=== PATIENT | female | born 1990 | race Caucasian/White ===

== ENCOUNTER 2018-06-22 00:05 | Observation (INO) | payer OTHER, SELFPAY ==
[2018-06-22] VITALS (14 sets, daily range): BP systolic 117–145; BP diastolic 66–89; PULSE 16–105; RESP 15–92; TEMP 36.2–37.2; O2SAT 93–100; BMI 38.4
--- NOTE | 2018-06-22 | PATH_ITS ---
[facility] Accession Number: [id number] . 01 Material submitted: . GALLBLADDER AND CONTENTS . 02 Diagnosis: Gallbladder: Cholelithiasis with associated chronic cholecystitis. MRV/06/24/2018 . 02 Electronically signed: . Anjum Fernandez MD, Pathologist NPI- [id number] . 01 Gross description: . Received in formalin, labeled gallbladder and contents, is an intact gallbladder (length-7.7 cm, diameter-2.0 cm) with segovia-pink smooth shiny serosa and a patent cystic duct. No lymph nodes are identified. The lumen contains brown viscous bile and multiple beaulieu-yellow smooth friable calculi (4.0 x 2.5 x 1.3 cm) with bright yellow cut surfaces. The mucosa is beaulieu smooth and flat. The wall is up to 0.1 cm thick. No nodules, masses or lesions are identified. Section code: (A1) cystic duct resection margin and two serial sections from the body; (A2) two longitudinal sections from the fundus. ([id number]) /MRV . 02 Pathologist provided ICD-10: K80.64 . 02 CPT . 525979 Performed at: 01 [facility] [address], [place], [place] [id number] MD Diallo Burkett MD Phone: [phone] Performed at: 02 [facility] [address] [place], [place] [id number] MD Aster Baird MD Phone: [phone]
--- NOTE | 2018-06-22 00:33 | DI.US.S_ITS ---
PROCEDURE: US ABDOMEN COMPLETE INDICATIONS: RIGHT UPPER QUADRANT PAIN TECHNIQUE: Real-time scanning was performed of the abdominal and retroperitoneal organs, with image documentation. COMPARISON: None. FINDINGS: Liver: Liver is diffusely increased in echogenicity. No focal hepatic abnormalities identified. Normal hepatic size. Gallbladder: Several gallstones are present, with several possibly impacted within the gallbladder neck is a stones do not appear to be mobile.. No gallbladder wall thickening. Positive sonographic Jamison sign. Biliary ducts: Intrahepatic bile ducts are non-dilated. Extrahepatic bile duct caliber measures 3.1 mm. Normal is 6-7 mm or less in diameter, or 10 mm or less post-cholecystectomy. Pancreas: Visualized portions of the pancreas are sonographically normal. Spleen: Spleen is normal in size and homogeneous in echotexture. Kidneys: Kidneys are normal in size and echotexture. Right kidney measures 9.6 cm long; left kidney measures 11.5 cm long. No hydronephrosis. 5 mm nonobstructing left inferior pole calcification. No solid masses. Aorta: Visualized aorta is normal in caliber at less than 3 cm. Iliacs: Not well-seen. IVC: Intrahepatic inferior vena cava is patent. Miscellaneous: No free abdominal fluid. IMPRESSION: 1. Increased hepatic echogenicity noted possibly related to hepatic steatosis but other sources of hepatocellular disease cannot be excluded. Recommend clinical correlation. 2. Cholelithiasis with several stones which appear to be impacted within the gallbladder neck and there is a positive sonographic Jamison sign. Developing acute cholecystitis cannot be excluded. Recommend clinical correlation. 3. 5 millimeter nonobstructing left renal calcification. Note: These findings are concordant with the preliminary interpretation. Dictated by: Zander Nicole [facility] Interpreted: Delmer Burgess MD on 06/22/2018 at 8:03 Approved by: Delmer Burgess M.D. on 06/22/2018 at 12:58
--- NOTE | 2018-06-22 00:35 | ED.CHESTPAIN ---
HPI - Chest Pain General Chief Complaint: Chest Pain Stated Complaint: pain under ribs goes around to back/chest Time Seen by Provider: 06/22/18 00:25 Source: patient Mode of arrival: ambulatory Limitations: no limitations History of Present Illness HPI narrative: The patient presents with upper abdominal pain radiating to the back. The pain is kind of circumferential around the upper arm. She has no associated chest pain or dyspnea. She has no cough. She denies nausea or emesis associated with the pain. The pain started about 7:00 p.m.. She last ate about lunch time. She denies a history of PUD or GERD. She does not use tobacco or alcohol. She has no chronic GI issues. Her LMP was 2 weeks ago and normal. She denies any probability of . She has no dysuria. She has not felt ill. The pain has increased. Related Data Allergies Allergy/AdvReac Type Severity Reaction Status Date / Time No Known Drug Allergies Allergy Verified 06/22/18 00:39 Review of Systems Review of Systems All systems reviewed & are unremarkable except as noted in HPI and below Constitutional Denies chills, Denies fever(s), Denies lethargy and Denies weakness Cardiovascular Denies chest pain, Denies irregular heart rhythm, Denies lightheadedness, Denies palpitations, Denies dyspnea, Denies dyspnea on exertion and Denies orthopnea Respiratory Denies cough, Denies dyspnea, Denies dyspnea on exertion and Denies wheezing Gastrointestinal Gastrointestinal: Reports abdominal pain, Denies constipation, Denies diarrhea, Denies loose stools, Denies nausea and Denies vomiting Genitourinary Denies dysuria and Reports other (Normal menstrual cycle 2 weeks ago. She is not ) Musculoskeletal Reports as per HPI, Denies abnormal gait, Reports back pain and Denies muscle weakness Integumentary/Breasts Denies erythema and Denies rash Neurologic Reports as per HPI, Denies abnormal gait and Denies weakness Endocrine Denies palpitations Allergic/Immunologic Denies wheezing [facility] Medical History No active medical problems (Acute) Surgical History History of appendectomy (Acute) Social History Smoking Status: Never smoker alcohol intake: never substance use type: does not use Exam Initial Vital Signs Initial Vital Signs: Vital Signs Temperature 97.8 F 06/22/18 00:15 Pulse Rate 80 06/22/18 00:15 Respiratory Rate 15 06/22/18 00:15 Blood Pressure 145/89 H 06/22/18 00:15 Pulse Oximetry 100 06/22/18 00:15 Const General: cooperative, healthy appearing and well developed Nutritional Appearance: well nourished Orientation: alert, awake, oriented x3 and not confused [facility] Mouth: oral mucosae normal Eyes Conjunctivae: conjunctivae normal and other Sclera: sclerae normal Chest Chest: other (No tenderness to the lower sternum or anterior chest wall) Resp Effort & Inspection: normal respiratory effort, able to speak in complete sentences, no respiratory distress and no use of accessory muscles Auscultation: clear to auscultation bilaterally, no rales, no rhonchi and no wheezes Cardio Rate: regular rate Rhythm: regular rhythm Heart Sounds: S1 normal, S2 normal, no click, no gallops, no murmurs and no rubs Pulses: normal peripheral pulses GI Inspection: non-distended Palpation: no hepatosplenomegaly, No pulsatile mass and tender (In the RUQ with guarding but no rebound.) Auscultation: normal bowel sounds Back/Spine/Pelvis Back: No CVA tenderness Skin General: no rashes or lesions noted and No jaundice Neuro General: alert, oriented x3, gait normal and no focal motor deficits Speech: speech normal Extrem General: full ROM, no clubbing, cyanosis or edema, no pedal edema and no calf tenderness Course Orders Ordered: ED Orders 06/22/18 00:33 US abdomen complete Stat 06/22/18 00:35 Complete Blood Count AUTO DIFF Stat Comprehensive Metabolic Panel Stat Lipase Stat Hydromorphone HCl (Dilaudid) 1 mg IV Q4HR PRN PRN Reason: Pain, Moderate (4-6) Sodium Chloride (Normal Saline 0.9%) 1,000 mls @ 150 mls/hr IV CONT ELSIE Last Admin: 06/22/18 00:43 Dose: 150 mls/hr Sodium Chloride (Normal Saline 0.9%) 1,000 mls @ 125 mls/hr IV CONT ELSIE Ondansetron HCl (Zofran) 4 mg IV Q4HR PRN PRN Reason: Nausea And Vomiting Discontinued Medications Hydromorphone HCl (Dilaudid) 1 mg IV NOW ONE Stop: 06/22/18 01:48 Last Admin: 06/22/18 01:48 Dose: 1 mg Ketorolac Tromethamine (Toradol) 30 mg IV NOW ONE Stop: 06/22/18 00:33 Last Admin: 06/22/18 01:24 Dose: 30 mg Pantoprazole Sodium (Protonix) 40 mg IV NOW ONE Stop: 06/22/18 00:33 Last Admin: 06/22/18 00:43 Dose: 40 mg Vital Signs - 8 hr 06/22/18 00:15 06/22/18 01:15 Temperature 97.8 F Pulse Rate 80 66 Respiratory Rate 15 15 Blood Pressure 145/89 H Blood Pressure [Left Arm] 132/75 Pulse Oximetry 100 100 MDM - Chest Pain Lab Data Attestation: I reviewed the patient's lab results. Result diagrams: 06/22/18 00:35 06/22/18 00:35 Lab Results 06/22/18 06/22/18 Range/Units 00:35 00:35 WBC 12.4 H (4.5-11.0) X10^3/uL RBC 4.92 (4.0-5.2) X10^6/uL Hgb 13.9 (12.0-16.0) g/dL Hct 42.0 (36-46) % MCV 85.5 (80-100) fL MCH 28.2 (26-34) PG MCHC 33.0 (30-36) % RDW 12.9 (11.6-14.8) % Plt Count 322 (150-400) X10^3/uL Neut % (Auto) 74.6 (50-75) % Lymph % (Auto) 15.5 L (25-40) % [place] % (Auto) 8.4 (3-14) % Eos % (Auto) 1.1 L (2-4) % Baso % (Auto) 0.4 (0-2) % Neut # (Auto) 9200 H (0036-8267) /uL Sodium 139 (137-145) mmol/L Potassium 4.4 (3.4-5.1) mmol/L Chloride 102 (98-107) mmol/L Carbon Dioxide 25 (22-32) mmol/L BUN 13 (7-17) mg/dL Creatinine 0.60 (0.52-1.04) mg/dL Estimated GFR > 60.0 (>60) mL/min BUN/Creatinine Ratio 21.7 (6-22) Glucose 117 H (70-100) mg/dL Calcium 9.9 (8.4-10.2) mg/dL Total Bilirubin 0.7 (0.2-1.3) mg/dL AST 31 (14-36) IU/L ALT 35 (9-52) IU/L Alkaline Phosphatase 65 (38-126) U/L Total Protein 7.6 (6.3-8.2) g/dL Albumin 4.7 (3.5-5.0) g/dL Globulin 2.9 (1.7-4.1) g/dL Albumin/Globulin Ratio 1.6 (1.0-2.8) Lipase 138 (23-300) U/L Imaging Data us abdomen: Radiologist's impression: Two obstructing stones in the neck of the gallbladder. Normal common bile duct. No wall thickening or pericholecystic fluid. MDM Narrative Medical decision making narrative: The patient has acute cholecystitis. I discussed the presentation, exam, labs and ultrasound with the on-call surgeon, Dr. Dunn. She has agreed to admit the patient. The patient will be NPO overnight with antiemetics and pain meds as needed. Discharge Plan Departure Patient Disposition: Admitted As Inpatient Clinical Impression: Acute cholecystitis
[2018-06-22] MEDS: PANTOPRAZOLE 40 MG VIAL IV (00:43)
[2018-06-22] MEDS: SODIUM CHLORIDE 0.9% 1,000 ML 150 ML IV (00:43)
[2018-06-22 00:45] LABS: Add Manual Diff / Slide Review NO; Basophils Percent Auto 0.4 % (0-2); Eosinophils Percent Auto 1.1 % (2-4); Hemoglobin 13.9 g/dL (12.0-16.0); Lymphocytes Percent Auto 15.5 % (25-40); Mean Corpuscular Hemoglobin 28.2 PG (26-34); Mean Corpuscular Volume 85.5 fL (80-100); Monocytes Percent Auto 8.4 % (3-14); Neutrophils Absolute Auto 9200 /uL (1500-7000); Neutrophils Percent Auto 74.6 % (50-75); Platelet Count 322 X10^3/uL (150-400); Red Blood Cell Count 4.92 X10^6/uL (4.0-5.2); Red Cell Distribution Width 12.9 % (11.6-14.8); White Blood Cell Count 12.4 X10^3/uL (4.5-11.0)
[2018-06-22 00:59] LABS: Alanine Aminotransferase 35 IU/L (9-52); Albumin 4.7 g/dL (3.5-5.0); Albumin Globulin Ratio 1.6 (1.0-2.8); Alkaline Phosphatase 65 U/L (38-126); Aspartate Aminotransferase 31 IU/L (14-36); BUN Creatinine Ratio 21.7 (6-22); Bilirubin Total 0.7 mg/dL (0.2-1.3); Blood Urea Nitrogen 13 mg/dL (7-17); Calcium 9.9 mg/dL (8.4-10.2); Carbon Dioxide 25 mmol/L (22-32); Chloride 102 mmol/L (98-107); Estimated Glomerular Filt Rate > 60.0 mL/min (>60); Globulin 2.9 g/dL (1.7-4.1); Glucose 117 mg/dL (70-100); HEMOLYSIS 49 (0-50); Lipase 138 U/L (23-300); Potassium 4.4 mmol/L (3.4-5.1); Sodium 139 mmol/L (137-145); Total Protein 7.6 g/dL (6.3-8.2)
[2018-06-22] MEDS: KETOROLAC 60 MG/2 ML VIAL 30 MG IV (01:24)
[2018-06-22] MEDS: HYDROMORPHONE 1 MG INJ IV (01:48)
--- NOTE | 2018-06-22 02:19 | PC.NURSE ---
Pt reports good pain relief after dilaudid, now rates pain 1/10.
[2018-06-22] MEDS: SODIUM CHLORIDE 0.9% 1,000 ML 125 ML IV ×2 (02:56→09:36)
--- NOTE | 2018-06-22 08:44 | CM.DANOTE ---
DCP: Case received, EMR reviewed and met with patient. Introduced self and role. DCP template complete with information currently available. Patient is a 28 year old female who admitted early this am via family vehicle, to the care of the hospitalist team. PCP: [facility].Payer:confirmed: [facility] Patient came to hospital with symptoms of severe abdominal and back pain. Patient carries diagnosis of cholecystitis. Met briefly with patient in room this morning, family member in room as well. Pleasant, alert and oriented. Patient will be meeting with Dr. Dunn today for possible surgical procedure of stones. Patient lives in [place] with , and has support of family as well. P: DCP to follow. Patient should be able to return home when medically stable. Laura Newell RN/Shot Bagger
[2018-06-22] MEDS: HYDROMORPHONE 2 MG INJ 1 MG IV (09:39)
[2018-06-22] MEDS: PIPERACILLIN-TAZO 3.375 GM/50 ML FROZ.PIGGY IV ×2 (10:06→18:26)
--- NOTE | 2018-06-22 10:28 | PC.NURSE ---
Addendum entered by Peace Jain R.N. 06/22/18 14:45: SURG - pacu arrived, ring, watch and nose piercing removed and given to her SO. Original Note: AM NOTE - alert, in earlier and surg this afternoon, bt are hypo, abd r mid quadrant is tender, states discomfort 4 on scale 0/10, standby assist to br, voided, missed hat, ret to bed, given 1mg iv dilaudid, ra 99%, npo status reinforced.
[2018-06-22] MEDS: LACTATED RINGERS 1,000 ML 42 ML IV ×2 (14:27→16:38)
--- NOTE | 2018-06-22 15:15 | PM.HP.1 ---
History of Present Illness Date Patient Seen: 06/22/18 Time Patient Seen: 15:15 Chief complaint: pain under ribs goes around to back/chest Narrative: 28-year-old otherwise healthy female who presented to the emergency department early this morning with complaints of severe progressive unrelenting right upper quadrant abdominal pain. Pain was described as quite sharp with acute onset approximately 6:00 p.m. last evening following a meal. Pain radiated directly to the back but did not involve the shoulder. No chest pain or shortness of breath. No fever or chills. No nausea or vomiting. Last bowel movement was yesterday and reportedly normal. No dysuria or hematuria. Denies any jaundice, brown urine, or acholic stools. She has had no similar episodes in the past. Patient History Medical History No active medical problems (Acute) Seasonal allergies (Acute) Surgical History H/O ovarian cystectomy (Acute) History of appendectomy (Acute) Family & Social History Family History: Reviewed 06/22/18 by Dane Martínez MD Social History: household members spouse Prior Living Arrangements House Safety & Behavioral: Feels Safe in Current Yes Environment Been Physically Hurt or No Threatened By a Person Suicidal Ideation Description None Suicide Plan Description No Plan Tobacco & Substance use: Smoking Status Never smoker alcohol intake never alcohol intake frequency 0-2 drinks per day Substance Use Type does not use Meds Home Medications Medication Instructions Recorded Confirmed Type fexofenadine-pseudoephedrine 1 tab PO QAM 06/22/18 06/22/18 History [Oksana-D 24 Hour] 21-iron fu-folic acid 1 cap PO DIRECTED 06/22/18 06/22/18 History [ Complete] Allergies Allergy/AdvReac Type Severity Reaction Status Date / Time No Known Drug Allergies Allergy Verified 06/22/18 00:39 Review of Systems Review of Systems All systems reviewed & are unremarkable except as noted in HPI and below Exam Vital Signs (past 8 hours): - 06/22/18 14:34 Temperature 97.4 F L Pulse Rate 85 Respiratory Rate 15 Blood Pressure 118/74 Pulse Oximetry 99 Oxygen Delivery Method Room Air Narrative Exam Narrative: Well-nourished well-developed female in no acute distress. Moderately obese. Alert oriented x3 Afebrile since admission. No tachycardia Sclera nonicteric Neck is supple without lymphadenopathy Regular rate and rhythm. No wheezes or crackles Abdomen is soft and nondistended. She is focally tender in the right upper quadrant with a positive Jamison sign. She is completely nontender elsewhere. I appreciate no masses, ascites, or hepatomegaly. Extremities show no clubbing or cyanosis. No edema. Objective Labs Result Diagrams: 06/22/18 00:35 06/22/18 00:35 Labs: Laboratory Results - last 24 hr 06/22/18 12 00:35 00:35 WBC 12.4 H RBC 4.92 Hgb 13.9 Hct 42.0 MCV 85.5 MCH 28.2 MCHC 33.0 RDW 12.9 Plt Count 322 Neut % (Auto) 74.6 Lymph % (Auto) 15.5 L [place]mullen % (Auto) 8.4 Eos % (Auto) 1.1 L Baso % (Auto) 0.4 Neut # (Auto) 9200 H Sodium 139 Potassium 4.4 Chloride 102 Carbon Dioxide 25 BUN 13 Creatinine 0.60 Estimated GFR > 60.0 BUN/Creatinine Ratio 21.7 Glucose 117 H Calcium 9.9 Total Bilirubin 0.7 AST 31 ALT 35 Alkaline Phosphatase 65 Total Protein 7.6 Albumin 4.7 Globulin 2.9 Albumin/Globulin Ratio 1.6 Lipase 138 I have personally reviewed her abdominal ultrasound done in the emergency department. She has no gallbladder wall thickening or pericholecystic fluid. Common bile duct is normal. She has several gallstones impacted within the neck of the gallbladder. Urine test in emergency department was negative. Assessment & Plan Plan: Assessment/Plan Narrative: 28-year-old female with biliary colic secondary to cholelithiasis. She also has evidence of acute cholecystitis with elevated white blood cell count. No evidence of choledocholithiasis however. I recommended laparoscopic cholecystectomy today. Technical details of the procedure were discussed. Anticipated healing and recovery times were reviewed. Risks, benefits, alternatives were explained. Risks including but not limited to anesthesia, bleeding, infection, pain, scars, need for drains, need to convert to open procedure, liver injury, small bowel injury, colon injury, gastric injury, vascular injury, bile duct injury, bile duct leak, retained common duct stone, need for endoscopic procedures, need for further major abdominal surgery including hepatic surgery, and all significant risks of major abdominal surgery were explained at length. All questions were answered to her satisfaction, and she voiced understanding. Consent was placed on the chart. Proceed as above. Quality VTE Deep Vein Thrombosis/Pulmonary Embolism Present on Admission: No
--- NOTE | 2018-06-22 15:21 | PM.PREOP ---
Pre-operative Note Interval Note Pre-op Check: Yes History & Physical Reviewed by Physician, Yes Exam Performed and Yes History & Physical exam performed today by Physician Changes: No H&P completed within 30 days and has changed as indicated here:: Patient seen and examined today. History and physical examination is on the chart and obviously has not changed within the last hour or so. Proceed with laparoscopic cholecystectomy today as planned.
[2018-06-22] MEDS: CEFAZOLIN 2 GM/100 ML FROZ.PIGGY IV (15:30)
--- NOTE | 2018-06-22 15:49 | SUR.OPER ---
Supine on padded OR bed, head on pillow, arms secured on padded arm boards at <90 degrees abduction, legs uncrossed, safety belt at thigh, tape over blanket over lower legs.
[2018-06-22] MEDS: LIDOCAINE 1% W/EPI INJ 4 ML INJ (16:09)
[2018-06-22] MEDS: BUPIVACAINE 0.5% (PF) VIAL 30 ML INJ (16:10)
[2018-06-22] MEDS: fentaNYL 100 MCG/2 ML INJ 50 MCG IV ×2 (17:20→17:25)
--- NOTE | 2018-06-22 17:20 | PM.OP.1 ---
Operative Date/Time/Diagnoses Date of procedure: 06/22/18 Time of procedure: 17:20 Pre-op diagnosis: Acute cholecystitis secondary to cholelithiasis Post-op diagnosis: other (Acute cholecystitis with hydrops of the gallbladder secondary to cholelithiasis) Procedure & Clinicians Procedure: Laparoscopic cholecystectomy Same procedure as scheduled: Yes Indications: 28-year-old obese female who presented with severe right upper quadrant abdominal pain. Examination and evaluation were consistent with acute cholecystitis secondary to gallstones. Urgent laparoscopic cholecystectomy was recommended. Surgeon: Dane Martínez Click Yes if Unassisted: Yes Anesthesia Type: General Operative Notes Findings: 1. Acutely inflamed gallbladder with edema of the gallbladder wall 2. Impacted gallstones in the neck of the gallbladder and multiple other gallstones within the lumen 3. Hydrops of the gallbladder 4. Adhesions in the lower abdomen and right lower quadrant consistent with previous operations 5. Otherwise grossly normal liver, peritoneum, omentum, stomach, duodenum, and colon within the limits of laparoscopic visualization Closure Type: primary Specimen(s): other (Gallbladder) Implants & Drains: None Estimated Blood Loss (mL): 25 Blood products transfused: none Procedure in detail: After obtaining informed consent the patient was brought to the operating room placed supine on the table. After satisfactory induction of anesthesia the abdomen was prepped and draped in usual sterile fashion. SCOAP time out was performed per standard protocol. A 1: 1 mixture 1% lidocaine with 1: 100,000 epinephrine and 0.5% plain Marcaine was injected in the skin and subcutaneous tissue at the superior aspect of the umbilicus for postoperative analgesia. Vertical midline incision was created at the superior superior aspect of the umbilicus with 11 scalpel blade for distance of approximately 3 cm. Blunt dissection revealed the rectus fascia which was quite deep given the patient's obesity and body habitus. Fascia was divided under direct visualization with Metzenbaum scissors and Sushant clamps were used to secure the edges of the fascia bilaterally. Fascia was secured superiorly and inferiorly with interrupted 0 Vicryl suture. We were slightly off the midline in the muscle was bluntly divided with S retractors whereby the underlying peritoneum was visualized and entered under direct visualization with Gladys clamp. Long 12 mm trocar was then inserted and carbon dioxide pneumoperitoneum was created. Abdomen was visually explored with a 30 degree 5 mm laparoscope. Findings are as above. Patient was placed in reverse Trendelenburg position and appropriate position was chosen for placement of a 5 mm epigastric trocar. Local anesthesia was injected, skin was incised with 11 scalpel blade, and trocar was inserted under direct laparoscopic visualization to the right of the falciform ligament. In a similar fashion to individual 5 mm trocars were placed in right lateral abdomen. Fundus of the gallbladder was secured with ratcheted grasper and retracted superiorly and medially over the liver edge. There were adhesions to the infundibulum of the gallbladder which were taken down bluntly with a [place] dissector. Infundibulum of the gallbladder was then exposed and secured with a Rebekah grasper then retracted inferiorly and laterally. Meticulous dissection was performed in the triangle of Calot using a combination of the [place] dissector and Kittner dissector. Cystic duct and cystic artery were exposed and cleared of overlying adhesions. Junction of the cystic duct and infundibulum of the gallbladder was clearly visualized. Critical view of the liver bed through the avascular window between the cystic duct, infundibulum, and cystic artery was obtained. Cystic duct was then controlled with 3 clips proximally 1 distally then divided with the scissors. In a similar fashion the cystic artery was controlled and divided with scissors. Monopolar cautery was used to remove the gallbladder from the hepatic bed. Specimen was placed in an endo-pouch then retrieved through the umbilical incision. Specimen was sent for permanent section. Patient was returned to supine position and the right upper quadrant was irrigated with copious amounts of sterile saline solution. Liver bed was meticulously examined and noted to be hemostatic. Previously placed clips were also meticulously examined on several occasions and noted to be in good position without evidence of hemorrhage or bile leak. After copious irrigation irrigant was noted to be completely clear and there was no evidence of any other problems with hemorrhage or bile leakage. Instruments and trocars removed and hemostasis verified. Carbon dioxide was evacuated. Fascia at the umbilical site was closed with previously placed 0 Vicryl suture. Skin at all 4 incision was then closed in a subcuticular fashion with running 4 0 Monocryl suture. Dermal adhesive was applied. Anesthesia was reversed and patient extubated in the operating room. She was taken recovery in stable condition. Complications: none Condition: stable Disposition: PACU Plan for aftercare: 1. Return to acute care unit for ongoing convalescence. Likely discharge home tomorrow.
--- NOTE | 2018-06-22 17:37 | SUR.PHASEI ---
1725 pt ready to transfer but receiving RN not available
[2018-06-22] MEDS: LACTATED RINGERS 1,000 ML 84 ML IV (18:05)
[2018-06-22] MEDS: OXYCODONE IR 5 MG TABLET PO (18:34)
[2018-06-23 00:36] VITALS: BP 127/63; PULSE 102; RESP 16; TEMP 36.9; O2SAT 95
[2018-06-23 00:40] VITALS: O2SAT 93
[2018-06-23] MEDS: ACETAMINOPHEN 325 MG TABLET 650 MG PO (06:01)
[2018-06-23 06:04] VITALS: BP 129/58; PULSE 95; RESP 16; TEMP 36.9; O2SAT 96
[2018-06-23 07:00] VITALS: O2SAT 96
[2018-06-23 07:50] VITALS: BP 114/61; PULSE 93; RESP 16; TEMP 36.8; O2SAT 97
[2018-06-23] MEDS: OXYCODONE IR 5 MG TABLET PO (08:25)
[2018-06-23] MEDS: LORATADINE 10 MG TABLET PO (08:26)
[2018-06-23] MEDS: DOCUSATE 100 MG CAPSULE PO (08:26)
[2018-06-23] MEDS: PRENATAL VIT,CALC/IRON/FOLIC 1 TABLET 1 TAB PO (08:26)
--- NOTE | 2018-06-23 08:28 | PC.NURSE ---
Addendum entered by Judith Pavon R.N. 06/23/18 12:46: Discharge teaching provided with Pt and S.O. Reviewed pain medication and post op follow up needed. All questions answered. Iv removed. W/c to private vehicle. Original Note: AM shift note Pt is A/o x3, APAP ineffective for COLON/ 5/10 ABD pain. Percolone given. BT hypoactive. Denies flatus and nausea. Pt feels ABD is slightly distended and tender to touch. Dermabond sites are CDI. GAIL. Enc ambulation this shift, education provided Re: avoiding post op complications. SO at bedside.
--- NOTE | 2018-06-23 10:28 | PM.DS.1 ---
History of Present Illness Date Patient Seen: 06/23/18 Time Patient Seen: 10:16 Chief complaint: pain under ribs goes around to back/chest Narrative: Patient is a woman admitted for treatment of acute cholecystitis. Discharge Providers Date of admission: 06/22/18 02:13 Discharge provider: Stevo Jalloh MD Discharge Date: 06/23/18 Summary Discharge Diagnosis: Obesity with a BMI of 38. Acute cholecystitis with cholelithiasis. Hospital Course: The patient underwent a laparoscopic cholecystectomy. She was given broad-spectrum antibiotics. Her diet was advanced postop and she was discharged follow-up in the office. She was instructed verbally to avoid lifting straining and may drive when pain-free off medication. She also was told to use a laxative if necessary. Status at Discharge Functional status at discharge: independent ambulation Time Spent with Patient Less than 30 minutes Exam Vital Signs (past 8 hours): - 06/23/18 06:04 06/23/18 07:50 Temperature 98.5 F 98.2 F Pulse Rate 95 H 93 H Respiratory Rate 16 16 Blood Pressure 129/58 L 114/61 Pulse Oximetry 96 97 Oxygen Delivery Method Room Air Oxygen Flow Rate 0 Objective Labs Result Diagrams: 06/22/18 00:35 06/22/18 00:35 Discharge Plan Discharge Plan Patient Disposition: Home Discharge Med Rec/Prescriptions Prescriptions: New hydrocodone-acetaminophen [[place]] 5-325 mg tablet See Label Instructions .ROUTE .COMPLEX Qty: 14 RF: 0 Continue fexofenadine-pseudoephedrine [Oksana-D 24 Hour] 180-240 mg Tablet Extended Release 24 Hr 1 tab PO QAM RF: 0 21-iron fu-folic acid [ Complete] 14 mg iron- 400 mcg Tablet 1 cap PO DIRECTED RF: 0 Follow up/Referrals: Dane Martínez MD [Physician] - 06/30/18 4:15 pm Provider Discharge Instructions Diet: Diet as Tolerated Skin/Wound/Dressing Care Report to your healthcare provider any signs of infection, such as:: chills, fever, night sweats, increased pain, unusual drainage and unusual redness Visit Report/Discharge Packet Visit Report Forms: Stroke Signs & Symptoms Discharge Data Attending Provider: Olivia Dunn Admit Date/Time: 06/22/18 02:13 Quality VTE Deep Vein Thrombosis/Pulmonary Embolism Present on Admission: No
[2018-06-23 11:10] VITALS: BP 106/53; PULSE 70; RESP 18; TEMP 36.7; O2SAT 98
== END 2018-06-23 13:20 | disposition home or self-care (01) ==
LOC: ED 02:04 → AC 06:30
PROVIDERS: Surgery; Admitting Provider Surgery; Emergency Provider Emergency Medicine; Visit Provider Surgery
PROC: 0FT44ZZ Resection of Gallbladder, Percutaneous Endoscopic Approach (ICD-10-PCS; CPT 47562; principal; 2018-06-22 16:30)
DX: K80.00 Calculus of gallbladder with acute cholecystitis without obstruction (principal); R07.9 Chest pain, unspecified; E66.01 Morbid (severe) obesity due to excess calories; K82.8 Other specified diseases of gallbladder; K82.1 Hydrops of gallbladder
CPT/HCPCS: 47562; 36591; 76700; 80053; 81003; 81025; 83690; 85025; 88304; 93005; 96361; 96374; 96375; 99220; 99283; 99284; G0378; C9113; J0690; J1100; J1170; J1885; J2405; J2543; J2704; J3010

== ENCOUNTER 2019-02-19 10:39 | Emergency (ER) | payer OTHER, SELFPAY ==
[2018-06-30 16:04] VITALS: BMI 38.4
--- NOTE | 2019-02-19 10:45 | ED_ITS ---
HPI - Abdominal Pain General Chief Complaint: Urogenital-Female Stated Complaint: SIDE PAIN R SIDE Time Seen by Provider: 02/19/19 10:40 Source: patient Mode of arrival: ambulatory Limitations: no limitations History of Present Illness HPI narrative: 28-year-old female here for evaluation of right-sided flank pain. Patient states that it started this morning. Was a fairly sudden onset. She states that it felt similar to when she had gallbladder stones in the past. She has since had her gallbladder removed. She has also had her appendix removed. States this morning she felt like she had episodes where she had to urinate but had difficulty doing so. Denies any blood in her urine. No vaginal bleeding. Related Data Home Medications Medication Instructions Recorded Confirmed fexofenadine-pseudoephedrine 1 tab PO QAM 06/22/18 07/28/18 [Oksana-D 24 Hour] 21-iron fu-folic acid 1 cap PO DIRECTED 06/22/18 07/28/18 [ Complete] Previous Rx's Medication Instructions Recorded tramadol [Ultram] 50 mg PO Q6H PRN #10 tab 02/19/19 Allergies Allergy/AdvReac Type Severity Reaction Status Date / Time No Known Drug Allergies Allergy Verified 06/22/18 00:39 Review of Systems Constitutional Denies fever(s) and Denies headache(s) ENT Ears, Nose, Mouth, and Throat: Denies headache(s) Cardiovascular Denies chest pain and Denies dyspnea Respiratory Denies dyspnea Gastrointestinal Gastrointestinal: Reports abdominal pain, Denies change in stool character, Denies dyspepsia, Reports nausea and Denies vomiting Genitourinary Denies dysuria and Reports urinary hesitancy Musculoskeletal Denies myalgias and Denies arthralgias Integumentary/Breasts Denies rash Neurologic Denies headache(s) Hematologic/Lymphatic Denies easy bleeding and Denies easy bruising [facility] Medical History (Updated 02/19/19 @ 12:00 by Tam Foote DO) No active medical problems (Acute) Seasonal allergies (Acute) Surgical History H/O ovarian cystectomy (Acute) History of appendectomy (Acute) History of cholecystectomy (Acute) Family History (Updated 06/30/18 @ 15:46 by Wendi Muñoz LPN) Mother Hypertension Grandmother Hypertension Diabetes mellitus Grandfather Stroke Social History (Updated 06/30/18 @ 15:46 by Wendi Mñuoz LPN) marital status: household members: spouse occupational status: employed Smoking Status: Never smoker alcohol intake: never substance use type: does not use Social History marital status: household members: spouse occupational status: employed Smoking Status: Never smoker alcohol intake: never substance use type: does not use Exam Initial Vital Signs Initial Vital Signs: Vital Signs Temperature 97.6 F 02/19/19 10:48 Pulse Rate 86 02/19/19 10:48 Respiratory Rate 18 02/19/19 10:48 Blood Pressure 141/77 H 02/19/19 10:48 Pulse Oximetry 96 02/19/19 10:48 Const General: cooperative, well developed and well groomed Orientation: alert, awake and oriented x3 Resp Effort & Inspection: normal respiratory effort Auscultation: clear to auscultation bilaterally Cardio Rate: regular rate Rhythm: regular rhythm Pulses: radial pulses present GI Inspection: non-distended Palpation: soft, No firm and No tender Back/Spine/Pelvis Back: No CVA tenderness Skin Lesions: no lesions Rashes: no rashes Neuro General: alert and awake Cognition: normal cognition Extrem General: normal to inspection and capillary refill normal Psych Appearance: grossly normal and well kempt Course Orders Ordered: ED Orders 02/19/19 11:02 Urine Microscopic Stat 02/19/19 11:03 CT kidney ureter bladder (KUB) Stat Vital Signs - 8 hr 02/19/19 10:48 Temperature 97.6 F Pulse Rate 86 Respiratory Rate 18 Blood Pressure 141/77 H Pulse Oximetry 96 MDM - Abdominal Pain Lab Data Attestation: I reviewed the patient's lab results. Lab Results 02/19/19 Range/Units 11:02 Urine RBC 30-100/hpf H (0-5/HPF) Urine WBC 1-5/hpf (0-5/HPF) Ur Squamous Epith Cells 1-5 /hpf (0-5/HPF) Ur Transition Epith Cell 0-1/hpf (0-5/HPF) Urine Bacteria None seen (None) Granular Casts 1-5/lpf (None) Urine Mucus 1+ H (Negative) Ur Culture Indicated? Cult not indicated Point of care testing: Point of Care Testing Test Results Negative Urine Dip Bedside Urine Glucose Negative Bedside Urine Bilirubin ++ 2 Bedside Urine Ketone +++ 80 Urine Specific [place] 1.030 Bedside Urine Occult Blood +++ Bedside Urine pH 5.5 Bedside Urine Protein + 30 Bedside Urine Urobilinogen +/- 1mg Bedside Urine Nitrite - Negative Bedside Urine Leukocytes - Negative Esterase Imaging Data CT scan - abdomen: Radiologist's impression: [address] [address] [address] Scan Report Signed Patient: Ni Nunes LMR#: [id number] : 1990Acct:[id number] Age/Sex: 28 / FDate of Service: 02/19/19 Loc: ED Accession Number: [id number] Procedure: CT kidney ureter bladder (KUB) Ordering Provider: Tam Foote D.O. PROCEDURE: CT KIDNEY URETER BLADDER (KUB) INDICATIONS: Right-sided pain concern for renal stone TECHNIQUE: Noncontrast 5 mm thick sections acquired from the diaphragms to the symphysis. 5 mm thick coronal and sagittal reformats were then performed. For radiation dose reduction, the following was used: automated exposure control, adjustment of mA and/or kV according to patient size. COMPARISON: [facility], , US ABDOMEN COMPLETE, 06/22/2018, 1:07. FINDINGS: Image quality: Excellent. Lung bases: Lung bases are clear. Heart size is normal. Urinary system: Both kidneys are normal in size. No kidney stones. No hydronephrosis or perinephric fat stranding. Both ureters appear non-dilated throughout their expected courses. Bladder wall thickness is normal. There is an apparent small calcified bladder stone, which is within the dependent bladder measuring 3 mm series 2 image 78. Other solid organs: Liver is normal in size. Gallbladder has been removed. Pancreas is normal in contours. Spleen is normal in size. No adrenal nodules. Peritoneum and bowel: Unenhanced bowel loops demonstrate normal wall thickness and caliber. No free fluid or air. Appendectomy changes are seen. Nodes and vessels: No retroperitoneal or mesenteric adenopathy by size criteria. Aorta and inferior vena cava are normal in caliber. Abdominal wall: No ventral hernias. Pelvis: No free pelvic fluid. No inguinal hernias or adenopathy. Physiologic cystic changes can be seen of the ovaries. Bones: No suspicious bony lesions. No vertebral body compression fractures. IMPRESSION: No renal stones or hydronephrosis can be seen. There is an apparent 3 mm bladder stone seen. Incidental note is made of: Cholecystectomy Appendectomy Dictated by: Steve Cuenca M.D. on 02/19/2019 at 10:33 Approved by: Steve Cuenca M.D. on 02/19/2019 at 10:36 [facility] Narrative Medical decision making narrative: Patient has been relatively symptom-free since being here in the emergency department. The CT scan does show a 3 mm stone in the bladder. She has blood in her urine but no signs of infection. I do suspect that the symptoms she had earlier today was when she was passing the stone. We discussed return precautions and follow-up instructions. No further intervention needed here in the emergency department. The patient expressed understanding and agreement with plan. Discharge Plan Departure Patient Disposition: Home Clinical Impression: Renal colic on right side Instructions: DI for Kidney Stones Activity Restrictions/Additional Instructions: You do have a 3 mm stone in your bladder. I would expect that you will pass this within the next 1-2 days and most likely later today. Take the medication the as needed. Return to the emergency department for any new or worsening symptoms. Prescriptions: New tramadol [Ultram] 50 mg tablet 50 mg PO Q6H PRN (Reason: pain) Qty: 10 RF: 0 No Action fexofenadine-pseudoephedrine [Oksana-D 24 Hour] 180-240 mg Tablet Extended Release 24 Hr 1 tab PO QAM RF: 0 21-iron fu-folic acid [ Complete] 14 mg iron- 400 mcg Tablet 1 cap PO DIRECTED RF: 0
[2019-02-19 10:48] VITALS: BP 141/77; PULSE 86; RESP 18; TEMP 36.4; O2SAT 96; BMI 40.8
--- NOTE | 2019-02-19 11:03 | DI.CT.S_ITS ---
PROCEDURE: CT KIDNEY URETER BLADDER (KUB) INDICATIONS: Right-sided pain concern for renal stone TECHNIQUE: Noncontrast 5 mm thick sections acquired from the diaphragms to the symphysis. 5 mm thick coronal and sagittal reformats were then performed. For radiation dose reduction, the following was used: automated exposure control, adjustment of mA and/or kV according to patient size. COMPARISON: [facility], US, US ABDOMEN COMPLETE, 06/22/2018, 1:07. FINDINGS: Image quality: Excellent. Lung bases: Lung bases are clear. Heart size is normal. Urinary system: Both kidneys are normal in size. No kidney stones. No hydronephrosis or perinephric fat stranding. Both ureters appear non-dilated throughout their expected courses. Bladder wall thickness is normal. There is an apparent small calcified bladder stone, which is within the dependent bladder measuring 3 mm series 2 image 78. Other solid organs: Liver is normal in size. Gallbladder has been removed. Pancreas is normal in contours. Spleen is normal in size. No adrenal nodules. Peritoneum and bowel: Unenhanced bowel loops demonstrate normal wall thickness and caliber. No free fluid or air. Appendectomy changes are seen. Nodes and vessels: No retroperitoneal or mesenteric adenopathy by size criteria. Aorta and inferior vena cava are normal in caliber. Abdominal wall: No ventral hernias. Pelvis: No free pelvic fluid. No inguinal hernias or adenopathy. Physiologic cystic changes can be seen of the ovaries. Bones: No suspicious bony lesions. No vertebral body compression fractures. IMPRESSION: No renal stones or hydronephrosis can be seen. There is an apparent 3 mm bladder stone seen. Incidental note is made of: Cholecystectomy Appendectomy Dictated by: Steve Cuenca M.D. on 02/19/2019 at 10:33 Approved by: Steve Cuenca M.D. on 02/19/2019 at 10:36
[2019-02-19 11:11] LABS: Bacteria Urine None Seen
[2019-02-19 11:25] LABS: Culture Indicated Urine Cult Not Indicated; Granular Casts Urine 1-5/LPF; Mucus Urine 1+ (Negative); RBC Urine 30-100/HPF (0-5/HPF); Squamous Epithelial Cell Urine 1-5 /HPF (0-5/HPF); Transitional Epi Cells Urine 0-1/HPF (0-5/HPF); WBC Urine 1-5/HPF (0-5/HPF)
[2019-02-19 12:12] VITALS: BP 127/71; PULSE 68; RESP 15; O2SAT 100
== END 2019-02-19 12:21 | disposition home or self-care (01) ==
PROVIDERS: Emergency Provider Emergency Medicine
DX: N23 Unspecified renal colic (principal)
CPT/HCPCS: 74176; 81003; 81015; 81025; 99282; 99283; 99284

== ENCOUNTER 2019-12-23 17:19 | Emergency (ER) | payer OTHER, SELFPAY ==
[2018-06-30 16:04] VITALS: BMI 38.4
[2019-12-23 17:23] VITALS: BP 147/76; PULSE 110; RESP 14; TEMP 36.6; O2SAT 100; BMI 32.9
--- NOTE | 2019-12-23 20:11 | ED.ABDPAIN ---
HPI - Abdominal Pain General Chief Complaint: Abdominal Pain Stated Complaint: blockage she cant pankaj forbes specify Time Seen by Provider: 12/23/19 20:05 Source: patient Mode of arrival: Ambulatory Limitations: no limitations History of Present Illness HPI narrative: 29-year-old female nonsmoker with history of chronic gastrointestinal problems presents with her and a chief complaint of decreased bowel movements, bloating and abdominal discomfort for the past few days. She has been taking MiraLax without success. She denies any fever or chills. She denies any nausea, vomiting or diarrhea. She denies any blood in her stool. She denies any dysuria, frequency or urgency. MD complaint: abdominal pain Onset (ago): day(s) Pain Consistency: intermittent Location: diffuse Severity: moderate Quality: cramping Radiation: none Migration to: no migration Relieving factors: nothing Exacerbating factors: nothing Associated symptoms: nausea Related Data Home Medications Medication Instructions Recorded Confirmed fexofenadine-pseudoephedrine 1 tab PO QAM 06/22/18 07/28/18 [Oksana-D 24 Hour] 21-iron fu-folic acid 1 cap PO DIRECTED 06/22/18 07/28/18 [ Complete] Previous Rx's Medication Instructions Recorded tramadol [Ultram] 50 mg PO Q6H PRN #10 tab 02/19/19 Allergies Allergy/AdvReac Type Severity Reaction Status Date / Time No Known Drug Allergies Allergy Verified 12/23/19 17:23 Review of Systems Constitutional Constitutional: Denies chills, Denies fatigue, Denies fever(s), Denies frequent falls, Denies lethargy and Denies weakness Eyes Eyes: Denies change in vision, Denies eye discharge, Denies irritation and Denies loss of vision ENT Ears, Nose, Mouth, and Throat: Denies change in voice, Denies dizziness, Denies neck pain, Denies sore throat and Denies throat swelling Cardiovascular Cardiovascular: Denies chest pain, Denies irregular heart rhythm, Denies lightheadedness, Denies palpitations, Denies dyspnea, Denies dyspnea on exertion and Denies orthopnea Respiratory Respiratory: Denies cough, Denies dyspnea, Denies dyspnea on exertion and Denies wheezing Gastrointestinal Gastrointestinal: Reports abdominal pain, Denies change in bowel habits, Reports constipation, Reports cramping, Denies diarrhea, Denies nausea and Denies vomiting Musculoskeletal Musculoskeletal: Denies neck pain and Denies numbness Integumentary/Breasts Skin/Breast: Denies pruritus, Denies erythema, Denies rash and Denies wounds Neurologic Neurologic: Denies behavioral changes, Denies confusion, Denies dizziness, Denies frequent falls, Denies loss of vision, Denies numbness and Denies weakness Psychiatric Psychiatric: Denies anxiety, Denies behavioral changes, Denies confusion, Denies depression, Denies homicidal ideation and Denies suicidal ideation Endocrine Endocrine: Denies fatigue, Denies flushing and Denies palpitations Hematologic/Lymphatic Hematologic/Lymphatic: Denies easy bruising Allergic/Immunologic Allergic/Immunologic: Denies urticaria, Denies throat swelling and Denies wheezing Patient History Medical History No active medical problems (Acute) Seasonal allergies (Acute) Surgical History H/O ovarian cystectomy (Acute) History of appendectomy (Acute) History of cholecystectomy (Acute) Family History Mother Hypertension Grandmother Hypertension Diabetes mellitus Grandfather Stroke Social History marital status: household members: spouse occupational status: employed Smoking Status: Never smoker alcohol intake: never substance use type: does not use Smoking Status: Never smoker alcohol intake frequency: 0-2 drinks per day Substance Use Type: does not use Exam Narrative Exam Narrative: GENERAL: [29] year old patient appears stated age. Well-nourished, well-developed patient, in mild distress. HEAD: Atraumatic. Normocephalic. EYES: Pupils equal round and reactive. Extraocular motions intact. No scleral icterus. No injection or drainage. ENT: Nose without bleeding, purulent drainage. Throat without erythema, tonsillar hypertrophy or exudate. Airway patent. NECK: Trachea midline. Non tender CARDIOVASCULAR: Regular rate and rhythm without murmurs, gallops, or rubs. RESPIRATORY: Clear to auscultation. Breath sounds equal bilaterally. No wheezes, rales, or rhonchi. GASTROINTESTINAL: Abdomen soft, non-tender, nondistended. Bowel sounds in all 4 quadrants RECTAL: heme negative, no mass or stool. Performed with female nursing house shorer at the bedside and patient's permission EXTREMITIES: No edema or joint tenderness. BACK: Nontender without deformity or crepitance. No flank tenderness. NEURO: AOx3. SKIN: No rash or erythema of visible areas Initial Vital Signs Initial Vital Signs: Vital Signs Temperature 97.8 F 12/23/19 17:23 Pulse Rate 110 H 12/23/19 17:23 Respiratory Rate 14 12/23/19 17:23 Blood Pressure 147/76 H 12/23/19 17:23 Pulse Oximetry 100 12/23/19 17:23 Course Vital Signs Vital signs: Vital Signs - 8 hr 12/23/19 17:23 Temperature 97.8 F Pulse Rate 110 H Respiratory Rate 14 Blood Pressure 147/76 H Pulse Oximetry 100 MDM - Abdominal Pain Imaging Data Abdominal x-ray: Radiologist's Impression: [address] [address] XRay Report Signed Patient: Ni Nunes LMR#: [id number] : 1990Acct:[id number] Age/Sex: 29 / FDate of Service: 12/23/19 Loc: ED Accession Number: [id number] Procedure: XR acute abdomen series Ordering Provider: Addy Carlisle D.O. PROCEDURE: XR ACUTE ABDOMEN SERIES INDICATIONS: decreased BM, Abdominal pain TECHNIQUE: One view chest and two views of the abdomen were acquired. COMPARISON: [facility], CT, CT KIDNEY URETER BLADDER (KUB), 02/19/2019, 11:08. FINDINGS: Surgical changes and devices: Cholecystectomy clips are present.. Chest: Lungs are clear. Heart size is normal. No pleural effusions. No pneumoperitoneum. Abdomen: Bowel gas pattern is nonspecific. There is paucity of small bowel gas. Moderate stool is seen in right colon. There is no visible distal colonic gas. No suspicious calcifications. Visualized solid organ contours appear normal. Bones: No suspicious bony lesions. IMPRESSION: Nonspecific bowel gas pattern. Dictated by: Olga Salinas M.D. on 12/23/2019 at 21:49 Approved by: Olga Salinas M.D. on 12/23/2019 at 21:50 MDM Narrative Medical decision making narrative: patient had a large BM and feels much better. Return precautions given. Questions answered to her apparent satisfaction. Discharge Plan Departure Patient Disposition: Home Clinical Impression: Abdominal pain Qualifiers: Abdominal location: generalized Qualified Code(s): R10.84 - Generalized abdominal pain Constipation Qualifiers: Constipation type: unspecified constipation type Qualified Code(s): K59.00 - Constipation, unspecified Discharge Date/Time: 12/23/19 22:27 Instructions: DI for Abdominal Pain-Adult, DI for Constipation Activity Restrictions/Additional Instructions: *You have been diagnosed with [Generalized abdominal pain and constipation ] *What to do: *Take medications as directed *Follow up with your primary care provider in 2-3 days, call for an appointment. Let them know you were seen in the Emergency Department and that we ask that you be seen in follow up *Return to ER if you should have any new, worsening or concerning symptoms Prescriptions: No Action fexofenadine-pseudoephedrine [Oksana-D 24 Hour] 180-240 mg Tablet Extended Release 24 Hr 1 tab PO QAM RF: 0 21-iron fu-folic acid [ Complete] 14 mg iron- 400 mcg Tablet 1 cap PO DIRECTED RF: 0 tramadol [Ultram] 50 mg tablet 50 mg PO Q6H PRN (Reason: pain) Qty: 10 RF: 0
[2019-12-23 20:13] VITALS: BP 136/77
--- NOTE | 2019-12-23 20:56 | DI.RAD.S_ITS ---
PROCEDURE: XR ACUTE ABDOMEN SERIES INDICATIONS: decreased BM, Abdominal pain TECHNIQUE: One view chest and two views of the abdomen were acquired. COMPARISON: [facility], CT, CT KIDNEY URETER BLADDER (KUB), 02/19/2019, 11:08. FINDINGS: Surgical changes and devices: Cholecystectomy clips are present.. Chest: Lungs are clear. Heart size is normal. No pleural effusions. No pneumoperitoneum. Abdomen: Bowel gas pattern is nonspecific. There is paucity of small bowel gas. Moderate stool is seen in right colon. There is no visible distal colonic gas. No suspicious calcifications. Visualized solid organ contours appear normal. Bones: No suspicious bony lesions. IMPRESSION: Nonspecific bowel gas pattern. Dictated by: Olga Salinas M.D. on 12/23/2019 at 21:49 Approved by: Olga Salinas M.D. on 12/23/2019 at 21:50
[2019-12-23 22:02] VITALS: BP 128/59; PULSE 84; RESP 14; O2SAT 97
== END 2019-12-23 22:27 | disposition home or self-care (01) ==
PROVIDERS: Emergency Provider Emergency Medicine
DX: R10.84 Generalized abdominal pain (principal); K59.00 Constipation, unspecified
CPT/HCPCS: 74022; 99283

== ENCOUNTER 2020-02-29 14:05 | Emergency (ER) | payer OTHER, SELFPAY ==
[2018-06-30 16:04] VITALS: BMI 38.4
[2020-02-29 14:10] VITALS: BP 137/84; PULSE 84; RESP 14; TEMP 36.9; O2SAT 100; BMI 32.9
[2020-02-29 14:44] LABS: Add Manual Diff / Slide Review NO; Basophils Absolute Auto 100 /uL (0-100); Basophils Percent Auto 0.4 % (0-2); Eosinophils Absolute Auto 1600 /uL (0-450); Eosinophils Percent Auto 9.4 % (2-4); Hematocrit 44.5 % (36-46); Hemoglobin 15.1 g/dL (12.0-16.0); Lymphocytes Absolute Auto 2200 /uL (1100-4500); Lymphocytes Percent Auto 13.1 % (25-40); Mean Corpuscular HGB Conc 33.9 % (30-36); Mean Corpuscular Hemoglobin 29.6 PG (26-34); Mean Corpuscular Volume 87.5 fL (80-100); Monocytes Absolute Auto 1300 /uL (0-900); Monocytes Percent Auto 7.9 % (3-14); Neutrophils Absolute Auto 11600 /uL (1500-7000); Neutrophils Percent Auto 69.2 % (50-75); Platelet Count 304 X10^3/uL (150-400); Red Blood Cell Count 5.09 X10^6/uL (4.0-5.2); Red Cell Distribution Width 12.4 % (11.6-14.8); White Blood Cell Count 16.8 X10^3/uL (4.5-11.0)
[2020-02-29 14:53] LABS: PTT Partial Thromboplastin Tim 30 SECONDS (26.4-36.2)
[2020-02-29 14:57] LABS: Alanine Aminotransferase 21 IU/L (<35); Albumin 4.6 g/dL (3.5-5.0); Albumin Globulin Ratio 1.4 (1.0-2.8); Alkaline Phosphatase 80 U/L (38-126); Aspartate Aminotransferase 31 IU/L (14-36); BUN Creatinine Ratio 27.9 (6-22); Blood Urea Nitrogen 17 mg/dL (7-17); Calcium 9.6 mg/dL (8.4-10.2); Carbon Dioxide 24 mmol/L (22-32); Chloride 103 mmol/L (98-107); Estimated Glomerular Filt Rate > 60.0 mL/min (>60); Globulin 3.4 g/dL (1.7-4.1); Glucose 92 mg/dL (70-100); HEMOLYSIS < 15 (0-50); Lipase 112 U/L (23-300); Potassium 3.9 mmol/L (3.4-5.1); Sodium 136 mmol/L (137-145)
[2020-02-29] MEDS: PANTOPRAZOLE 40 MG VIAL IV (15:18)
[2020-02-29] MEDS: SODIUM CHLORIDE 0.9% 1,000 ML 1000 ML IV (15:18)
--- NOTE | 2020-02-29 15:22 | ED_ITS ---
HPI - Abdominal Pain <PIERRE Mcfadden - Last Filed: 02/29/20 18:40> General Chief Complaint: Abdominal Pain Stated Complaint: sharp stomach pains Time Seen by Provider: 02/29/20 14:20 Source: patient Mode of arrival: Ambulatory Limitations: no limitations History of Present Illness HPI narrative: The patient is a 29-year-old female nonsmoker who presents with her with history of cholecystectomy, appendectomy who presents with a chief complaint of abdominal pain. She states it started this morning when she woke up, she has not had anything to eat yet today. She states it feels like stabbing periumbilical pain. She states that she has felt this way before, though it usually goes away soon. It did not go away today. She denies any fevers, nausea vomiting. Her last bowel movement just prior to arrival and normal. She states that the pain was so severe she was bent over. She takes blood this once a day. Last menstrual period was February 06. She denies any dysuria urgency or frequency. She denies any abnormal vaginal discharge. She states her pain is epigastric at this point time, was radiating around the sides prior, is no longer radiating. Patient states her diet has been usual, she drinks have black coffee every morning without eating anything. Related Data Home Medications Medication Instructions Recorded Confirmed fexofenadine-pseudoephedrine 1 tab PO QAM 06/22/18 07/28/18 [Oksana-D 24 Hour] 21-iron fu-folic acid 1 cap PO DIRECTED 06/22/18 07/28/18 [ Complete] Previous Rx's Medication Instructions Recorded tramadol [Ultram] 50 mg PO Q6H PRN #10 tab 02/19/19 ondansetron 4 mg PO Q6H PRN #20 tab 02/29/20 pantoprazole 40 mg PO DAILY #14 tab 02/29/20 Allergies Allergy/AdvReac Type Severity Reaction Status Date / Time No Known Drug Allergies Allergy Verified 02/29/20 14:13 Review of Systems <PIERRE Mcfadden - Last Filed: 02/29/20 18:40> Review of Systems Narrative: GENERAL: Denies chills, fatigue, malaise, fever, sweats. HEENT: Denies sinus pain, ear pain, sore throat, difficulty swallowing, dizziness. RESPIRATORY: Denies dyspnea, cough, wheezing, hemoptysis, sputum. CARDIOVASCULAR: Denies chest pain, palpitations, orthopnea, edema, GASTROINTESTINAL: See HPI : Denies dysuria, frequency, incontinence, hematuria, urinary retention. MUSCULOSKELETAL: denies weakness, joint pain, or bony pain SKIN: Denies rash, skin lesions, or other NEUROLOGIC: Denies weakness, headache, numbness, change in speech, confusion, seizures, incoordination. PSYCHIATRIC: No concerning psychosocial issues. 12 point review of systems is negative except for those stated above Patient History <PIERRE Mcfadden - Last Filed: 02/29/20 18:40> Medical History No active medical problems (Acute) Seasonal allergies (Acute) Surgical History H/O ovarian cystectomy (Acute) History of appendectomy (Acute) History of cholecystectomy (Acute) Family History Mother Hypertension Grandmother Hypertension Diabetes mellitus Grandfather Stroke Social History marital status: household members: spouse occupational status: employed Smoking Status: Never smoker alcohol intake: never substance use type: does not use Smoking Status: Never smoker alcohol intake frequency: holidays/special occasions only Substance Use Type: does not use Exam <PIERRE Mcfadden - Last Filed: 02/29/20 18:40> Narrative Exam Narrative: GENERAL: This is a well-nourished, well-developed patient, no acute distress HEAD: Atraumatic. Normocephalic. No temporal or scalp tenderness. EYES: Pupils equal round and reactive. Extraocular motions intact. No scleral icterus. No injection or drainage. ENT: Nose without bleeding, purulent drainage or septal hematoma. Mask is on Airway patent. NECK: Trachea midline. No JVD or lymphadenopathy. Supple, nontender, no meningeal signs. CARDIOVASCULAR: Regular rate and rhythm without murmurs, gallops, or rubs. RESPIRATORY: Clear to auscultation. Breath sounds equal bilaterally. No wheezes, rales, or rhonchi. No cough. No increased respiratory effort. No accessory muscle use. GASTROINTESTINAL: Abdomen soft, epigastric tenderness to palpation, nondistended. No hepato-splenomegaly, or palpable masses. No guarding. Active bowel sounds all 4 quadrants. EXTREMITIES: No clubbing, cyanosis, or edema. No joint tenderness, effusion, or edema noted. BACK: Nontender without deformity or crepitance. No flank tenderness. NEURO: AOx3. SKIN: No rash or erythema. Initial Vital Signs Initial Vital Signs: Vital Signs Temperature 98.4 F 02/29/20 14:10 Pulse Rate 84 02/29/20 14:10 Respiratory Rate 14 02/29/20 14:10 Blood Pressure 137/84 02/29/20 14:10 Pulse Oximetry 100 02/29/20 14:10 <Payton Veloz DO - Last Filed: 03/01/20 10:25> Initial Vital Signs Initial Vital Signs: Vital Signs Temperature 98.4 F 02/29/20 14:10 Pulse Rate 84 02/29/20 14:10 Respiratory Rate 14 02/29/20 14:10 Blood Pressure 137/84 02/29/20 14:10 Pulse Oximetry 100 02/29/20 14:10 Course <PIERRE Mcfadden - Last Filed: 02/29/20 18:40> Orders Ordered: Discontinued Medications Al Hydrox/Mg Hydrox/Simethicone 20 ml/ Lidocaine HCl 15 ml 0 ml PO NOW ONE Stop: 02/29/20 16:45 Last Admin: 02/29/20 16:58 Dose: 35 ml Documented by: ANDREW Sodium Chloride (Normal Saline 0.9%) 1,000 mls @ 1,000 mls/hr IV BOLUS ONE Stop: 02/29/20 16:07 Last Infusion: 02/29/20 16:50 Dose: 0 mls/hr Documented by: Admin: 02/29/20 15:18 Dose: 1,000 mls/hr Documented by: ANDREW Ondansetron HCl (Zofran) 4 mg IV NOW ONE Stop: 02/29/20 16:45 Last Admin: 02/29/20 16:58 Dose: 4 mg Documented by: ANDREW Pantoprazole Sodium (Protonix) 40 mg IV NOW ONE Stop: 02/29/20 15:09 Last Admin: 02/29/20 15:18 Dose: 40 mg Documented by: ANDREW Vital Signs Vital signs: Vital Signs - 8 hr 02/29/20 14:10 02/29/20 16:14 02/29/20 16:15 Temperature 98.4 F Pulse Rate 84 86 82 Respiratory Rate 14 23 17 Blood Pressure 137/84 127/68 Pulse Oximetry 100 100 99 02/29/20 16:30 02/29/20 17:00 02/29/20 17:30 Temperature Pulse Rate 75 84 80 Respiratory Rate 22 15 20 Blood Pressure 120/63 115/66 115/77 Pulse Oximetry 99 98 98 <Payton Veloz DO - Last Filed: 03/01/20 10:25> Orders Ordered: Discontinued Medications Al Hydrox/Mg Hydrox/Simethicone 20 ml/ Lidocaine HCl 15 ml 0 ml PO NOW ONE Stop: 02/29/20 16:45 Last Admin: 02/29/20 16:58 Dose: 35 ml Documented by: ANDREW Sodium Chloride (Normal Saline 0.9%) 1,000 mls @ 1,000 mls/hr IV BOLUS ONE Stop: 02/29/20 16:07 Last Infusion: 02/29/20 16:50 Dose: 0 mls/hr Documented by: Admin: 02/29/20 15:18 Dose: 1,000 mls/hr Documented by: ANDREW Ondansetron HCl (Zofran) 4 mg IV NOW ONE Stop: 02/29/20 16:45 Last Admin: 02/29/20 16:58 Dose: 4 mg Documented by: ANDREW Pantoprazole Sodium (Protonix) 40 mg IV NOW ONE Stop: 02/29/20 15:09 Last Admin: 02/29/20 15:18 Dose: 40 mg Documented by: ANDREW Vital Signs Vital signs: Vital Signs - 8 hr 02/29/20 14:10 02/29/20 16:14 02/29/20 16:15 Temperature 98.4 F Pulse Rate 84 86 82 Respiratory Rate 14 23 17 Blood Pressure 137/84 127/68 Pulse Oximetry 100 100 99 02/29/20 16:30 02/29/20 17:00 08/26/20 17:30 Temperature Pulse Rate 75 84 80 Respiratory Rate 22 15 20 Blood Pressure 120/63 115/66 115/77 Pulse Oximetry 99 98 98 MDM - Abdominal Pain <Caryn Hurstmer, [facility]- - Last Filed: 02/29/20 18:40> Lab Data Result diagrams: 02/29/20 14:33 02/29/20 14:33 Labs: Lab Results 02/29/20 02/29/20 02/29/20 Range/Units 14:33 14:33 14:33 WBC 16.8 H (4.5-11.0) X10^3/uL RBC 5.09 (4.0-5.2) X10^6/uL Hgb 15.1 (12.0-16.0) g/dL Hct 44.5 (36-46) % MCV 87.5 (80-100) fL MCH 29.6 (26-34) PG MCHC 33.9 (30-36) % RDW 12.4 (11.6-14.8) % Plt Count 304 (150-400) X10^3/uL Neut % (Auto) 69.2 (50-75) % Lymph % (Auto) 13.1 L (25-40) % [place] % (Auto) 7.9 (3-14) % Eos % (Auto) 9.4 H (2-4) % Baso % (Auto) 0.4 (0-2) % Neut # (Auto) 34559 H (4263-9105) /uL Lymph # (Auto) 2200 (7142-3876) /uL [place] # (Auto) 1300 H (0-900) /uL Eos # (Auto) 1600 H (0-450) /uL Baso # (Auto) 100 (0-100) /uL PT 12.0 (10.1-12.7) SECONDS INR 1.0 (0.9-1.3) APTT 30 (26.4-36.2) SECONDS Sodium 136 L (137-145) mmol/L Potassium 3.9 (3.4-5.1) mmol/L Chloride 103 (98-107) mmol/L Carbon Dioxide 24 (22-32) mmol/L BUN 17 (7-17) mg/dL Creatinine 0.61 (0.52-1.04) mg/dL Estimated GFR > 60.0 (>60) mL/min BUN/Creatinine Ratio 27.9 H (6-22) Glucose 92 (70-100) mg/dL Calcium 9.6 (8.4-10.2) mg/dL Total Bilirubin 1.0 (0.2-1.3) mg/dL AST 31 (14-36) IU/L ALT 21 (<35) IU/L Alkaline Phosphatase 80 (38-126) U/L Total Protein 8.0 (6.3-8.2) g/dL Albumin 4.6 (3.5-5.0) g/dL Globulin 3.4 (1.7-4.1) g/dL Albumin/Globulin Ratio 1.4 (1.0-2.8) Lipase 112 (23-300) U/L Point of care testing: Point of Care Testing Test Results Negative Urine Dip Bedside Urine Glucose Negative Bedside Urine Bilirubin - Negative Bedside Urine Ketone +/- 5 Urine Specific [place] 1.030 Bedside Urine Occult Blood - Negative Bedside Urine pH 5.5 Bedside Urine Protein - Negative Bedside Urine Urobilinogen - Negative Bedside Urine Nitrite - Negative Bedside Urine Leukocytes - Negative Esterase Imaging Data CT scan - abdomen/pelvis: Radiologist's Impression: [address] [place] [id number] Scan Report Signed Patient: Ni Nunes R#: [id number] : 1990Acct:[id number] Age/Sex: 29 / FDate of Service: 02/29/20 Loc: ED Accession Number: [id number] Procedure: CT abdomen pelvis w con Ordering Provider: Caryn Higgins [facility]- PROCEDURE: CT ABDOMEN PELVIS W CON INDICATIONS: abd pain, elevated wbc TECHNIQUE: After the administration of intravenous contrast, 5 mm thick sections acquired from the diaphragm to the symphysis. 5 mm coronal and sagittal reformats were acquired. For radiation dose reduction, the following was used: automated exposure control, adjustment of mA and/or kV according to patient size. COMPARISON: None. FINDINGS: Image quality: Excellent. ABDOMEN: Lung bases: Lung bases are clear. Heart size is normal. Solid organs: Liver is normal in size and enhancement. Gallbladder has been previously resected . Biliary system is non dilated. Pancreas enhances normally. Spleen is normal in size and enhancement. No adrenal nodules. Kidneys demonstrate normal size and enhancement, without hydronephrosis. Peritoneum and bowel: Bowel loops demonstrate normal wall thickness and caliber. No free fluid or air. Generalized colonic obstipation slightly greater on right than the left. Nodes and vessels: No retroperitoneal or mesenteric adenopathy by size criteria. Aorta and inferior vena cava are normal in size. Miscellaneous: No ventral hernias. PELVIS: Genitourinary: Bladder wall thickness is normal. Miscellaneous: No inguinal hernias or adenopathy. Enteric staple line at the cecum right lower quadrant suggest prior appendectomy. No evidence of diverticulitis. Bones: No suspicious bony lesions. No vertebral body compression fractures. IMPRESSION: Prior cholecystectomy. At the lung bases and through the abdomen and pelvis no underlying infection or neoplasm is found. Surgical enteric staple line at the right lower quadrant suggests prior appendectomy. No diverticulitis identified. Dictated by: Maurice Tristan M.D. on 02/29/2020 at 16:19 Approved by: Maurice Tristan M.D. on 02/29/2020 at 16:21 [facility] Narrative Medical decision making narrative: The patient is a 29 year female who presents with a chief complaint of epigastric pain. She does have pain to palpation. Her labs are mostly reassuring ovum slight leukocytosis up to 16. Given her significant pain and leukocytosis, CT was obtained to help rule out any acute etiologies. Abdominal pelvic CT has no acute findings. The patient feels much improved after the above-stated therapies, and I discussed at length decreased acid in her diet, not drinking back coffee empty stomach etcetera prescriptions of Zofran and Protonix given. Encouraged follow-up with primary care provider in the next few days. Discussed coming back to ER for any acute concerns, abdominal pain with fever etcetera. Patient and have no questions or concerns upon discharge and state understanding of return precautions as well as follow-up care <Payton Veloz, DO - Last Filed: 03/01/20 10:25> Lab Data Labs: Lab Results 02/29/20 02/29/20 02/29/20 Range/Units 14:33 14:33 14:33 WBC 16.8 H (4.5-11.0) X10^3/uL RBC 5.09 (4.0-5.2) X10^6/uL Hgb 15.1 (12.0-16.0) g/dL Hct 44.5 (36-46) % MCV 87.5 (80-100) fL MCH 29.6 (26-34) PG MCHC 33.9 (30-36) % RDW 12.4 (11.6-14.8) % Plt Count 304 (150-400) X10^3/uL Neut % (Auto) 69.2 (50-75) % Lymph % (Auto) 13.1 L (25-40) % [place] % (Auto) 7.9 (3-14) % Eos % (Auto) 9.4 H (2-4) % Baso % (Auto) 0.4 (0-2) % Neut # (Auto) 58432 H (2003-5954) /uL Lymph # (Auto) 2200 (5374-8957) /uL [place] # (Auto) 1300 H (0-900) /uL Eos # (Auto) 1600 H (0-450) /uL Baso # (Auto) 100 (0-100) /uL PT 12.0 (10.1-12.7) SECONDS INR 1.0 (0.9-1.3) APTT 30 (26.4-36.2) SECONDS Sodium 136 L (137-145) mmol/L Potassium 3.9 (3.4-5.1) mmol/L Chloride 103 (98-107) mmol/L Carbon Dioxide 24 (22-32) mmol/L BUN 17 (7-17) mg/dL Creatinine 0.61 (0.52-1.04) mg/dL Estimated GFR > 60.0 (>60) mL/min BUN/Creatinine Ratio 27.9 H (6-22) Glucose 92 (70-100) mg/dL Calcium 9.6 (8.4-10.2) mg/dL Total Bilirubin 1.0 (0.2-1.3) mg/dL AST 31 (14-36) IU/L ALT 21 (<35) IU/L Alkaline Phosphatase 80 (38-126) U/L Total Protein 8.0 (6.3-8.2) g/dL Albumin 4.6 (3.5-5.0) g/dL Globulin 3.4 (1.7-4.1) g/dL Albumin/Globulin Ratio 1.4 (1.0-2.8) Lipase 112 (23-300) U/L Point of care testing: Point of Care Testing Test Results Negative Urine Dip Bedside Urine Glucose Negative Bedside Urine Bilirubin - Negative Bedside Urine Ketone +/- 5 Urine Specific [place] 1.030 Bedside Urine Occult Blood - Negative Bedside Urine pH 5.5 Bedside Urine Protein - Negative Bedside Urine Urobilinogen - Negative Bedside Urine Nitrite - Negative Bedside Urine Leukocytes - Negative Esterase Discharge Plan Departure Patient Disposition: Home Clinical Impression: Abdominal pain Qualifiers: Abdominal location: epigastric Qualified Code(s): R10.13 - Epigastric pain Discharge Date/Time: 02/29/20 18:04 Instructions: DI for Abdominal Pain-Adult, GERD Diet Activity Restrictions/Additional Instructions: Thank you for trusting us with your care today. As discussed, I sent 2 prescriptions to the [facility] pharmacy I suggest a light diet, avoid deep fried fatty food spicy foods etc Please follow-up with primary care provider next 48-72 hours Please come back to the emergency department for any acute concerns Prescriptions: New ondansetron 4 mg tablet,disintegrating 4 mg PO Q6H PRN (Reason: nausea and vomiting) Qty: 20 RF: 0 pantoprazole 40 mg tablet,delayed release (DR/EC) 40 mg PO DAILY Qty: 14 RF: 0 No Action fexofenadine-pseudoephedrine [Oksana-D 24 Hour] 180-240 mg Tablet Extended Release 24 Hr 1 tab PO QAM RF: 0 21-iron fu-folic acid [ Complete] 14 mg iron- 400 mcg Tablet 1 cap PO DIRECTED RF: 0 tramadol [Ultram] 50 mg tablet 50 mg PO Q6H PRN (Reason: pain) Qty: 10 RF: 0 Referrals: [facility] [Provider Group] <Payton Veloz, - Last Filed: 03/01/20 10:25> Cosign ED Attending Estela Attestation: I was immediately available in the department for consultation. Documentation has been reviewed. I agree with assessment and plan.
--- NOTE | 2020-02-29 15:51 | DI.CT.S_ITS ---
PROCEDURE: CT ABDOMEN PELVIS W CON INDICATIONS: abd pain, elevated wbc TECHNIQUE: After the administration of intravenous contrast, 5 mm thick sections acquired from the diaphragm to the symphysis. 5 mm coronal and sagittal reformats were acquired. For radiation dose reduction, the following was used: automated exposure control, adjustment of mA and/or kV according to patient size. COMPARISON: None. FINDINGS: Image quality: Excellent. ABDOMEN: Lung bases: Lung bases are clear. Heart size is normal. Solid organs: Liver is normal in size and enhancement. Gallbladder has been previously resected . Biliary system is non dilated. Pancreas enhances normally. Spleen is normal in size and enhancement. No adrenal nodules. Kidneys demonstrate normal size and enhancement, without hydronephrosis. Peritoneum and bowel: Bowel loops demonstrate normal wall thickness and caliber. No free fluid or air. Generalized colonic obstipation slightly greater on right than the left. Nodes and vessels: No retroperitoneal or mesenteric adenopathy by size criteria. Aorta and inferior vena cava are normal in size. Miscellaneous: No ventral hernias. PELVIS: Genitourinary: Bladder wall thickness is normal. Miscellaneous: No inguinal hernias or adenopathy. Enteric staple line at the cecum right lower quadrant suggest prior appendectomy. No evidence of diverticulitis. Bones: No suspicious bony lesions. No vertebral body compression fractures. IMPRESSION: Prior cholecystectomy. At the lung bases and through the abdomen and pelvis no underlying infection or neoplasm is found. Surgical enteric staple line at the right lower quadrant suggests prior appendectomy. No diverticulitis identified. Dictated by: Maurice Tristan M.D. on 02/29/2020 at 16:19 Approved by: Maurice Tristan M.D. on 02/29/2020 at 16:21
[2020-02-29 16:14] VITALS: PULSE 86; RESP 23; O2SAT 100
[2020-02-29 16:15] VITALS: BP 127/68; PULSE 82; RESP 17; O2SAT 99
[2020-02-29 16:30] VITALS: BP 120/63; PULSE 75; RESP 22; O2SAT 99
[2020-02-29] MEDS: ONDANSETRON 4 MG/2 ML INJ IV (16:58)
[2020-02-29] MEDS: MAG HYDROX/ALUMINUM/SIMETH SUS 20 ML, LIDOCAINE VISCOUS 2% 15 ML PO (16:58)
[2020-02-29 17:00] VITALS: BP 115/66; PULSE 84; RESP 15; O2SAT 98
[2020-02-29 17:30] VITALS: BP 115/77; PULSE 80; RESP 20; O2SAT 98
== END 2020-02-29 18:04 | disposition home or self-care (01) ==
PROVIDERS: Emergency Medicine; Emergency Provider Nurse Practitioner Family
DX: R10.13 Epigastric pain (principal); D72.829 Elevated white blood cell count, unspecified
CPT/HCPCS: 36415; 74177; 80053; 81003; 81025; 83690; 85025; 85610; 85730; 93005; 96361; 96374; 96375; 99284; C9113; J2405; Q9967

== ENCOUNTER → 2020-11-22 13:28 | Outpatient (CLI) | payer OTHER, SELFPAY ==
[2018-06-30 16:04] VITALS: BMI 38.4
[2020-11-22 14:02] LABS: COVID19 -Nasal RAPID Negative (Negative)
== END ==
PROVIDERS: PCP Family Medicine; Visit Provider Specialist
DX: Z01.812 Encounter for preprocedural laboratory examination (principal); Z20.822 Contact with and (suspected) exposure to COVID-19
CPT/HCPCS: 87635

== ENCOUNTER 2020-11-23 07:21 | Day surgery (SDC) | payer OTHER, SELFPAY ==
[2018-06-30 16:04] VITALS: BMI 38.4
[2020-11-22 08:24] VITALS: BMI 40.0
[2020-11-23] VITALS (15 sets, daily range): BP systolic 116–140; BP diastolic 54–88; PULSE 60–80; RESP 12–18; TEMP 36.2–36.8; O2SAT 91–100; BMI 40.0
--- NOTE | 2020-11-23 08:26 | PM.PREOP ---
Pre-operative Note COVID-19 COVID-19 status: Negative Result date/Date tested (Pos, Neg/Pending): 11/22/20 Interval Note History & Physical reviewed/Exam performed by Physician: Yes Changes to H&P: No
[2020-11-23] MEDS: ACETAMINOPHEN 325 MG TABLET 975 MG PO (08:28)
[2020-11-23] MEDS: GABAPENTIN 300 MG CAPSULE PO (08:29)
[2020-11-23] MEDS: LACTATED RINGERS 1,000 ML 100 ML IV ×2 (08:29→08:40)
[2020-11-23] MEDS: SCOPOLAMINE 1 PATCH TOP (08:41)
--- NOTE | 2020-11-23 09:19 | SUR.OPER ---
Lithotomy on padded OR bed, head on pillow, right arm secured on padded arm board at <90 degrees abduction. left arm tucked at side Legs secured in padded yellow fins stirrups.
[2020-11-23] MEDS: BUPIVACAINE 0.5% W/ EPI (PF) 30 ML VIAL INJ (09:24)
[2020-11-23] MEDS: METHYLENE BLUE 50 MG/10 ML VIAL IV (09:26)
--- NOTE | 2020-11-23 09:49 | PM.OP.1 ---
Operative Date/Time/Diagnoses Date of procedure: 11/23/20 Time of procedure: 09:49 Pre-op diagnosis: Dysmenorrhea Post-op diagnosis: same Procedure & Clinicians Procedure: Diagnostic laparoscopy with lysis of pelvic adhesions Same procedure as scheduled: Yes Indications: Patient with dysmenorrhea requesting laparoscopy to determine if she has endometriosis Surgeon: Adia Odonnell Click Yes if Unassisted: Yes Anesthesia Type: General Operative Notes Findings: Adhesions of the omentum to the anterior abdominal wall between the umbilicus and pubic symphysis. No evidence of internal hernias. No endometriosis. Normal uterus, tubes, ovaries. Closure Type: primary Specimen(s): none sent Estimated Blood Loss (mL): 5 Blood products transfused: none Procedure in detail: Patient was brought to the operating room where she underwent general anesthesia. She was placed in low yellowfin stirrups and prepped and draped in usual sterile fashion. No antibiotics were indicated. Pulsatile stockings were in place and functional. Warming was with blankets. A single-tooth tenaculum was placed on the anterior lip of the cervix and the cervix dilated to #6 Hegar dilator. The [place] uterine manipulator was placed and balloon inflated with 3 mL of air. The area of the incisions were injected with half percent Marcaine with epinephrine. An incision was made in the umbilicus with a scalpel and the Verres needle placed in the abdomen. Confirmation of correct placement of the needle was performed by withdrawing on the syringe and then allowing fluid to fall freely through the needle. The abdomen was insufflated to 4 L of CO2. A 5 mm trocar was placed under direct visualization. 2 other 5 mm trochars were placed in the right and left lower quadrant under direct visualization after incising the skin. There did not appear to be any damage with placement of the trocars. Monopolar cautery and scissors were used to lyse the adhesion of the omentum to the anterior abdominal wall. Adequate hemostasis was noted. After examining the abdomen the CO2 was allowed to escape from the abdomen. The trochars were removed. Skin was closed with 4-0 Vicryl. The patient went to recovery room in good condition. Complications: none Post-operative Condition: stable Disposition: same day surgery Plan for aftercare: Home when awake and stable
[2020-11-23] MEDS: OXYCODONE IR 5 MG TABLET PO ×2 (10:07→10:42)
== END 2020-11-23 11:05 | disposition home or self-care (01) ==
PROVIDERS: PCP Family Medicine; Referring Provider Family Medicine; Visit Provider Specialist
PROC: (CPT 49320; principal; 2020-11-23 08:45)
DX: K66.0 Peritoneal adhesions (postprocedural) (postinfection) (principal); N94.6 Dysmenorrhea, unspecified; E66.01 Morbid (severe) obesity due to excess calories; Z68.41 Body mass index [BMI] 40.0-44.9, adult
CPT/HCPCS: 44180; J0330; J1100; J1885; J2250; J2405; J2704; J3010; Q9968